=== PATIENT | female | born 1950 | race Caucasian/White ===

== ENCOUNTER 2016-09-20 13:35 | Emergency (ER) | payer MEDICARE ==
[2016-09-20] MEDS ORDERED: 0.9 % SODIUM CHLORIDE 1,000 ML BAG IV ONE (13:51)
--- NOTE | 2016-09-20 13:57 | Emergency Department Record ---
History of Present Illness - General Chief complaint: Rectal bleeding Stated complaint: RECTAL BLEEDING Time Seen by Provider: 09/20/16 13:51 Source: Patient, Family Mode of Arrival: Ambulatory Limitations: No limitations - History of Present Illness Initial comments: 66 yo female presents with multiple bloody stools. She developed loose stools around 4am. Quickly she noted the stools became bloody. She states she has had about 10 bloody stools since that time. She has intermittent cramps. No current pain. She denies any fever or chills. No recent antibiotics. She denies a histoyr of the same in the past. She does not see a GI doctor. No known intestinal or colon disease. MD complaint: Gross hematochezia -: Hour(s) (12) Quality: Cramping Consistency: Intermittent Improves with: None Worsens with: Bowel movement Associated Symptoms: Abdominal pain, Loss of appetite - Related Data Home Medications Medication Instructions Recorded Confirmed Last Taken Albuterol Sulfate [Ventolin Hfa] 17 gm IH Q4H PRN 04/20/14 09/20/16 04/20/14 Budesonide [Pulmicort] 180 mcg IH BID 04/20/14 09/20/16 09/17/16 Fluticasone/Salmeterol 500/50 1 disk IH BID 04/20/14 09/20/16 09/19/16 [Advair 500/50] Sertraline HCl [Zoloft] 100 mg PO DAILY 04/20/14 09/20/16 09/19/16 Sumatriptan Succinate [Imitrex] 100 mg PO ASDIR PRN 04/20/14 05/01/14 09/17/16 Previous Rx's Medication Instructions Recorded Losartan Potassium 100 mg PO DAILY #30 tablet 04/20/14 Sumatriptan Succinate [Imitrex] 100 mg PO DAILY #6 tablet 04/21/14 Allergies Allergy/AdvReac Type Severity Reaction Status Date / Time No Known Drug Allergies Allergy Verified 04/20/14 10:28 Review of Systems Constitutional: Denies: Chills, Fever, Malaise Eyes: Denies: Eye discharge, Eye pain, Photophobia, Vision change ENT: Denies: Congestion, Throat pain Respiratory: Denies: Cough, Dyspnea, Hemoptysis, Stridor, Wheezes Cardiovascular: Denies: Chest pain, Palpitations, Syncope Endocrine: Denies: Fatigue Gastrointestinal: Reports: Abdominal pain, Diarrhea, Hematochezia, Nausea, Vomiting. Denies: Constipation, Hematemesis, Melena Genitourinary: Denies: Dysuria, Incontinence Musculoskeletal: Denies: Arthralgia, Back pain, Myalgia Skin: Denies: Bruising, Change in color, Rash Neurological: Denies: Headache, Numbness, Tremors, Vertigo, Weakness Psychiatric: Denies: Anxiety Hematological/Lymphatic: Denies: Anemia, Blood Clots, Easy bleeding, Easy bruising, Swollen glands Past Medical History - SOCIAL HISTORY Smoking Status: Former smoker - RESPIRATORY Hx Respiratory Disorders: Yes Hx COPD: Yes - CARDIOVASCULAR Hx Cardio Disorders: Yes Hx Hypertension: Yes - NEURO Hx Neuro Disorders: Yes Hx Headaches: Yes (Chronic migraines) - GI Hx GI Disorders: Yes Hx Ulcer: Yes - Hx Genitourinary Disorders: No - ENDOCRINE Hx Endocrine Disorders: No - MUSCULOSKELETAL Hx Musculoskeletal Disorders: No - PSYCH Hx Psych Problems: Yes Hx Anxiety: Yes - HEMATOLOGY/ONCOLOGY Hx Hematology/Oncology Disorders: No Family Medical History Hx Cancer: Brother/Sister Hx Diabetes: Father Hx Heart Disease: Grandparents Hx HTN: Father, Brother/Sister Physical Exam - General General Appearance: Alert, Oriented x3, Cooperative, No acute distress Limitations: No limitations - Head Head exam: Atraumatic, Normal inspection - Eye Eye exam: Normal appearance, PERRL. negative: Conjunctival injection - ENT ENT exam: Normal exam Ear exam: Normal external inspection Nasal Exam: Normal inspection Mouth exam: Normal external inspection Teeth exam: Normal inspection Throat exam: Normal inspection - Neck Neck exam: Normal inspection, Full ROM. negative: Tenderness - Respiratory Respiratory exam: Normal lung sounds bilaterally. negative: Respiratory distress - Cardiovascular Cardiovascular Exam: Regular rate, Normal rhythm, Normal heart sounds - GI/Abdominal GI/Abdominal exam: Soft. negative: Guarding - Rectal Rectal exam: Deferred, Bloody stool, Other (The patient passed a bloody clot at this time) - exam: Deferred - Extremities Extremities exam: Normal inspection, Full ROM, Normal capillary refill. negative: Tenderness - Back Back exam: Reports: Normal inspection, Full ROM. Denies: Muscle spasm, Rash noted, Tenderness - Neurological Neurological exam: Alert, Normal gait, Oriented X3, Reflexes normal - Psychiatric Psychiatric exam: Normal affect, Normal mood. negative: Agitated, Anxious - Skin Skin exam: Dry, Intact, Normal color, Warm Course - Reevaluation(s) Reevaluation #1: EMR reviewed. her hgb on 12/01/15 was 13.6 She reports her last colonoscopy was 2-3 years ago and was completely normal She denies a history of polyps, cancer, diverticuloisi. 09/20/16 14:02 Reevaluation #2: The CBC was reviewed The Hgb is 14 and the WBC is 14.1 09/20/16 14:20 Reevaluation #3: The remaining labs are pending as the lab analyzer is down at this time The patient did pass an additional small clot I discussed transfer given no GI for several days at [facility] The patient prefers [facility] Her prior GI doctor was Dr. Phillips. 09/20/16 14:47 Reevaluation #4: I SW Dr Johnathan FRANKLIN He accepts the patient to [facility] 09/20/16 14:57 Reevaluation #5: the remaining labs were reviewed No significant acute changes awaiting bed placement at [facility] 09/20/16 15:15 Bed was assigned at [facility] Report called 09/20/16 16:15 - Consultations Consultation #1: 17:45 Repeat H and H due to delay in transport Waiting now for EMS . They had critical care transport delaying this transfer. Consultation #2: 18:10 Repeat Hgb 14.3. Stable at time of transfer. Medical Decision Making - Lab Data Result diagrams: 09/20/16 17:44 09/20/16 13:45 Disposition Disposition: Transfer Clinical Impression: GI bleed Qualifiers: GI bleed type/associated pathology: unspecified gastrointestinal hemorrhage type Qualified Code(s): K92.2 - Gastrointestinal hemorrhage, unspecified Disposition: Acute Care Hospital Transfer Transfer To: [facility] Reason For Transfer: GI bleed Accepting Physician: Dr Mann Time Discussed w/Accepting Physician: 14:57 Condition: (2) Stable Forms: Patient Portal Access Time of Disposition: 14:49
[2016-09-20 14:06] LABS: HEMATOCRIT 43.6 % (35.0-47.0); MEAN CELL VOLUME 95.8 fl (81-97); MEAN CORPUSCULAR HEMOGLOBIN 30.8 pg (27-33); MEAN CORPUSCULAR HGB CONC 32.1 g/dl (32-36); MEAN PLATELET VOLUME 10.8 fl (7.4-10.4); PLATELET COUNT 214 K/uL (130-400); RED BLOOD COUNT 4.55 M/uL (3.80-5.40); RED CELL DISTRIBUTION WIDTH 12.6 % (11.5-14.5); WHITE BLOOD COUNT W/O DIFF 14.1 K/uL (4.2-12.2)
[2016-09-20 14:20] LABS: INR 1.02; PARTIAL THROMBOPLASTIN TIME 25.7 SECONDS (24.5-39.1); PROTHROMBIN TIME (PATIENT) 11.5 SECONDS (9.5-12.1)
[2016-09-20 14:54] LABS: ABO GROUP O; ANTIBODY SCREEN NEGATIVE (NEGATIVE); RH TYPE POSITIVE
[2016-09-20 14:58] LABS: ALB/GLOB RATIO 1.6 (1.1-1.8); ALBUMIN 4.6 gm/dL (3.5-5.0); ANION GAP 17.7 (7-16); BILIRUBIN,TOTAL 0.52 mg/dL (0.2-1.3); CARBON DIOXIDE 22.3 mmol/L (22-30); TOTAL PROTEIN 7.4 gm/dL (6.3-8.2)
[2016-09-20] MEDS ORDERED: ONDANSETRON HCL IV 4 MG/2 ML VIAL IVP ONE (15:14)
[2016-09-20 17:52] LABS: HEMATOCRIT 43.6 % (35.0-47.0); HEMOGLOBIN 14.3 gm/dl (11.6-16.0)
== END 2016-09-20 18:08 | disposition short-term general hospital (02) ==
LOC: ER 13:35
DX: K92.1 Melena (principal); J44.9 Chronic obstructive pulmonary disease, unspecified; I10 Essential (primary) hypertension; Z87.891 Personal history of nicotine dependence
CPT/HCPCS: 99285 ×2; 96374; 96361; 83690; 85018; 85014; 85730; 85610; 80053; 85027; 86900; 86901; 86850; J2405; J7030

== ENCOUNTER 2017-05-13 09:28 | Day surgery (SDC) | payer MEDICARE ==
[2017-05-13] MEDS ORDERED: LIDOCAINE 2% MDV (20MG/ML) 20ML VIAL IV ONE (14:00)
[2017-05-13] MEDS ORDERED: FENTANYL PF 100MCG/2ML VIAL IV ONE (14:00)
[2017-05-13] MEDS ORDERED: PROPOFOL 10 MG/ML VIAL IV ONE (14:00)
--- NOTE | 2017-05-30 12:20 | Operative Note ---
DATE OF SURGERY: 05/13/2017 SURGEON: Chacha Goins MD OPERATION: ESOPHAGOGASTRODUODENOSCOPY with dilatation. INDICATIONS: This is a 66-year-old female with a history of intermittent episodes of dysphagia who presented for esophagogastroduodenoscopy. POSTOPERATIVE DIAGNOSES: 1. Normal esophagus. 2. Mild gastritis. 3. Normal duodenum. ANESTHESIA: Sedation is per Anesthesia. Pulse oximetry was monitored throughout the procedure to maintain O2 saturation of 90% or greater. Supplemental oxygen was administered via nasal cannula. Cardiac and vital signs were monitored throughout the duration of the procedure, and they were stable. The procedure of esophagogastroduodenoscopy and risks and benefits of the procedure, including the risk of bleeding and perforation, among others, were explained to the patient who voiced understanding and desired to have the procedure done. Physical examination was performed, and the patient was found stable for sedation. PROCEDURE: The patient was placed in the left lateral position and sedation was initiated. A plastic bite block was inserted into the oral cavity. The Olympus [id number] gastroscope was introduced into the oral cavity and advanced to the proximal esophagus without difficulty. The esophageal mucosa was carefully examined upon introduction of the gastroscope. The proximal, mid, and distal esophageal mucosa appeared normal. The gastroscope was then advanced into the stomach, and surveillance of the stomach revealed mild erythema along the gastric body and antrum but no ulcers were noted. The gastroscope was then advanced to the descending duodenum without difficulty. The duodenal bulb and descending duodenum appeared normal. The gastroscope was then withdrawn into the stomach and retroflexion was performed. There were no other lesions noted. The gastroscope was then straightened and withdrawn while carefully examining the gastric and esophageal mucosa. No other lesions noted. Multiple gastric and mid esophageal biopsies were obtained. She remained with stable vital signs. A Ahmadi dilator size 60-Portuguese was then passed into the stomach with minimal resistance. The Ahmadi dilator was then withdrawn and the procedures were terminated. The patient tolerated the procedure well without any immediate complications. She remained with stable vital signs and was transferred to the recovery room. RECOMMENDATIONS: 1. The patient is to continue on her proton pump inhibitors. 2. I would be happy to see her back as needed. Thank you for allowing me to participate in the care of your patient. CC: Dr. Carrol ARMIJO
== END 2017-05-13 11:15 | disposition home or self-care (01) ==
LOC: HOP 09:28
PROVIDERS: ATTEND Internal Medicine Gastroenterology
DX: R13.10 Dysphagia, unspecified (principal); K29.70 Gastritis, unspecified, without bleeding; I10 Essential (primary) hypertension; J44.9 Chronic obstructive pulmonary disease, unspecified
CPT/HCPCS: 43235; 00740; J3010